=== PATIENT | female | born 2005 | race Caucasian/White ===

== ENCOUNTER 2024-02-16 09:28 | Emergency (ER) | payer OTHER, SELFPAY ==
[2024-02-16 09:34] VITALS: BP 120/73
[2024-02-16] MEDS: LIDOCAINE 4% PATCH 1 PATCH TOPICAL (10:10)
--- NOTE | 2024-02-16 10:20 | ED.GENMED ---
History of Present Illness
General
Chief Complaint: Musculo-Skeletal Complaint
Source: patient
Exam Limitations: none
Time Seen by Provider: 02/16/24 09:44
Nursing documentation reviewed up to this point in time: agreed with
Travel History
Have you had any contact with someone who has COVID-19?: No
Do you have any symptoms of coronavirus? Fever > 100 degrees, chills, cough, shortness of breath, sore throat, loss of taste or smell, muscle aches, or headache?: No
History of Present Illness
History of Present Illness:
Patient is a 18-year-old female is brought to the ER by mom. 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 Yesterday she was
standing at her job throughout the day and this morning woke up with a very stiff back with intense low back pain. She denies any actual radiation. She denies any loss of bowel or bladder or lower extremity weakness. She did PT and was seen by
[facility] years ago however back pain has been getting worse. no recent injury.
Review of Systems
Review of Systems
Allergies reviewed?: Yes
Other source history: family
All Other Systems: ROS reviewed and negative except as documented in HPI and ROS
Constitutional: Reports no symptoms; Denies fever, fatigue or chills
Respiratory: Reports no symptoms
ABD/GI: Reports no symptoms
: Denies dysuria, flank pain, incontinence, urgency or discharge
Musculoskeletal: Reports back pain ( low back pain )
Skin: Reports no symptoms
Neurological: Denies weakness or numbness
Hematologic/Lymphatic: Reports no symptoms
Psychiatric: Reports no symptoms
Phy Exam
General Physical Exam
General Presentation: no apparent distress
General age: appears stated age
General Skin: warm and dry
General Habitus: normal
General Mental: alert
General Hydration: appears well hydrated
Neurological Exam
Neurological Exam: alert, oriented x3, no motor deficits, normal reflexs, no sensory deficits and other (Intact distal sensation bilateral lower extremities normal dorsiflexion plantarflexion)
Musculoskeletal Exam
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
Course
Orders/Labs/Results
Orders:
Orders
02/16/24 09:55
Test Result ONCE
02/16/24 09:56
Lidocaine [Lidocaine 4% Patch] 1 patch TOPICAL NOW STA
Lumbar Spine Complete, 4 View [CR Lumbar Spine Comp Min 4 Vw*] Urgent
Comment:
Reason For Exam: pain
02/16/24 09:59
HCG, Urine Qualitative Screen Urgent
Date Specimen was Collected: 02/16/24
Time Specimen was Collected: 09:55
Vital Signs
Initial and Last Documented VS:
Initial Vital Signs
Temp Pulse Resp BP Pulse Ox
98.2 F 71 20 120/73 100
02/16/24 09:34 02/16/24 09:34 02/16/24 09:34 02/16/24 09:34 02/16/24 09:34
Last Documented Vital Signs
Temp Pulse Resp BP Pulse Ox
98.2 F 71 20 120/73 100
02/16/24 09:34 02/16/24 09:34 02/16/24 09:34 02/16/24 09:34 02/16/24 09:34
MDM/Problems Addressed
Differential Diagnosis Includes:
Not limited to lumbar strain less likely fractures stress
MDM/Problems Addressed:
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 Recently patient has not done gymnastics for the past several years but does complain of worsening back pain worse after standing up yesterday. Worse with range of
motion she was tender in the midline lumbar region therefore x-ray was done and unremarkable. Mom reports ibuprofen is not working will DC on a short course of steroids with lidocaine patch and close outpt f/u with ortho
*Radiology
Radiology exam reviewed: radiology read reviewed
*Pulse Oximetry
Patient hypoxic: no
*Critical Care Note
Total Time (30-74mins, 75-104mins- exclusive of procedures): Not Applicable
ED Attending Note
-
Portions of this chart may have been created with voice recognition software.� Occasional wrong word or��sound alike� substitutions may have occurred due to the inherent limitations of voice recognition software.
Discharge Plan
Departure
Patient Disposition: Home (Routine Discharge)
Date of Disposition: 02/16/24
Time of Disposition: 11:07
Patient with high blood pressure during this ER visit?: No
Condition: Fair
Covid-19: Not Applicable
Discharge Problem:
Low back pain
Instructions: Low Back Pain (DC)
Prescriptions:
New
prednisone 20 mg tablet
40 mg PO DAILY Qty: 8 0RF
lidocaine 5 % adhesive patch,medicated
1 patch topical DAILY Qty: 15 0RF
Rx Instructions:
remove after 12 hrs
Referrals:
Dot Rothman, DO [Active] -
NONE,* [Family Provider] -
Activity Restrictions/Additional Instructions:
As discussed a prescription for steroids was sent to pharmacy for the next 4 days. PT was given the first dose here in the ER.
Patient may intermittently take Tylenol as well. A prescription for lidocaine patch was also sent to pharmacy to use as directed. Follow-up with orthopedics in the next several days for reevaluation of continued pain and return of any worsening of
symptoms
Interventions
Interventions:
*Risk Screen - Suicide Last Done: 02/16/24 09:53
*General Assessment Last Done: 02/16/24 09:53
*Neglect/Abuse Screening Last Done: 02/16/24 09:53
ED- Fall Risk Assessment Last Done: 02/16/24 09:53
*ED COVID-19 Vaccine History Last Done: 02/16/24 09:53
ED-Musculoskeletal Assessment Last Done: 02/16/24 09:53
Discharge Date and Time
Print Language: SWEDISH
[2024-02-16 10:26] LABS: HCG, Urine Qualitative Screen Negative
[2024-02-16] MEDS: DELTASONE 40 MG PO (11:15)
[2024-02-16 11:25] VITALS: BP 125/78
--- NOTE | 2024-02-16 11:25 | EDRN ---
Reviewed discharge instructions with patient and her mother. Verbalized understanding. [facility]
== END 2024-02-16 11:25 | disposition home or self-care (01) ==
LOC: EMR 09:28
PROVIDERS: Nurse Practitioner; EMERGENCY PHYSICIAN Emergency Medicine
DX: M54.50 Low back pain, unspecified (principal)
CPT/HCPCS: 99283; 72110; 81025

== ENCOUNTER 2025-08-20 08:26 | Emergency (ER) | payer OTHER, SELFPAY ==
[2025-08-20 08:28] VITALS: BP 143/73
[2025-08-20 09:27] VITALS: BP 106/61
--- NOTE | 2025-08-20 09:27 | ED.GENMED ---
History of Present Illness
General
Chief Complaint: Heart Rate Problem
Time Seen by Provider: 08/20/25 08:42
History of Present Illness
History of Present Illness:
19-year-old female without significant past medical history presenting to the emergency department for palpitations. Patient reports she woke up this morning with her heart racing. Notes that this has happened to her in the past, back in November.
At that time she did have a Holter monitor, without detection of anything abnormal. Notes a fluttering in her chest. Denies significant pain. No known history of cardiac disease. Patient denies any history of PE, recent surgery, recent travel.
She is on OCPs. Also notes some underlying anxiety. Denies abdominal pain or GI symptoms.
Phy Exam
Physical Exam
Physical Exam:
General: Well-appearing, no clinical signs of dehydration, nontoxic and in no acute distress
HEENT: protecting airway
Neck: appears supple
CV: Normal heart rate, regular rhythm, no evidence of cyanosis
Resp: No accessory muscle use, no increased work of breathing, lungs clear to auscultation bilaterally
Abd: No distention
Extremities: No deformities, no swelling
Neuro: alert, no focal neurologic deficit
: deferred
Rectal: deferred
Psych: Normal affect
Skin: Intact
Course
Orders/Labs/Results
Orders:
Orders
08/20/25 08:36
EKG [Electrocardiogram (*1)] Urgent
Reason for Study: Chest Pain
EKG- Treatment ONCE
08/20/25 09:19
Complete Blood Count/With Diff Urgent
Comprehensive Metabolic Panel Urgent
D-Dimer Urgent
Troponin I Urgent
Vital Signs
Initial and Last Documented VS:
Initial Vital Signs
Temp Pulse Resp BP Pulse Ox
98.1 F 83 16 143/73 100
08/20/25 08:28 08/20/25 08:28 08/20/25 08:28 08/20/25 08:28 08/20/25 08:28
Last Documented Vital Signs
Temp Pulse Resp BP Pulse Ox
98.1 F 74 12 106/61 100
08/20/25 08:28 08/20/25 09:30 08/20/25 09:30 08/20/25 09:27 08/20/25 09:30
MDM/Problems Addressed
MDM/Problems Addressed:
19-year-old female presenting to the emergency department for palpitations. Vital signs on arrival are normal.
On exam patient is resting comfortably, no acute distress or discomfort. Heart rate is presently normal. Does note that she is still having a fluttering. EKG obtained on arrival, nonischemic, no arrhythmia. Possible component of PVCs. Notes she
has had a Holter monitor in the past, unremarkable. Lower suspicion for any serious arrhythmia or acute cardiac issue. Did discuss with patient, plan for laboratory analysis to evaluate for any electrolyte abnormality. In addition patient is on
OCPs and with possible preceding tachycardia PE is a consideration, however less likely given normalized heart. Patient is adamantly refusing laboratory analysis due to anxiety. Did discuss reasons for blood work on multiple occasions, continues
to decline. Given hemodynamic stability and reassuring EKG, feel stable for discharge with outpatient cardiac follow-up. Return precautions communicated to mother and patient at bedside who verbalized understanding
*Pulse Oximetry
SaO2: 100
Oxygen Mode of Delivery: Room air
Patient hypoxic: no
*EKG
Interpreted by ED Provider?: Yes
EKG Intrepretation Date: 08/20/25
EKG Intrepretation Time: 09:44
Interpretation: normal
Heart Rate: 72
Rate: normal
Rhythm: sinus
[place]: normal axis
Interval: normal interval
QRS Pattern: normal QRS
Ischemia: no ischemia
*Critical Care Note
Total Time (30-74mins, 75-104mins- exclusive of procedures): Not Applicable
ED Attending Note
-
Portions of this chart may have been created with voice recognition software.� Occasional wrong word or��sound alike� substitutions may have occurred due to the inherent limitations of voice recognition software.
Discharge Plan
Departure
Patient with high blood pressure during this ER visit?: No
Condition: Good
Discharge Problem:
Palpitations
Prescriptions:
No Action
prednisone 20 mg tablet
40 mg PO DAILY Qty: 8 0RF
lidocaine 5 % adhesive patch,medicated
1 patch topical DAILY Qty: 15 0RF
Rx Instructions:
remove after 12 hrs
Referrals:
Darren Lebron MD [Active, Cardiology]
Activity Restrictions/Additional Instructions:
You were seen in the emergency department for palpitations
You were found to have reassuring vital signs and EKG. We recommend laboratory analysis, however you declined. If symptoms persist or worsen, we recommend that you follow-up closely with cardiology
Please follow-up closely with your primary care physician.
Return to the emergency department for any worsening of your symptoms, or any development of chest pain, difficulty breathing, abdominal pain with persistent vomiting and inability to tolerate food or liquid by mouth (concern for dehydration),
weakness, headache or confusion, fever greater than 100.4, or any additional symptoms that are concerning to you.
Thank you for choosing [facility].
Interventions
Interventions:
*Risk Screen - Suicide Last Done: 08/20/25 08:28
*General Assessment Last Done: 08/20/25 08:50
*Neglect/Abuse Screening Last Done: 08/20/25 08:28
*ED- Fall Risk Assessment Last Done: 08/20/25 08:50
*ED COVID-19 Vaccine History Last Done: 08/20/25 08:50
*ED Influenza Vaccine History Last Done: 08/20/25 08:50
ED- Cardiac Assessment Last Done: 08/20/25 08:50
ED- Pulmonary Assessment Last Done: 08/20/25 08:50
Discharge Date and Time
Print Language: AZERI
== END 2025-08-20 10:22 | disposition home or self-care (01) ==
LOC: EMR 08:26
PROVIDERS: EMERGENCY PHYSICIAN Student in an Organized Health Care Education/Training Program; FAMILY PHYSICIAN Physician Assistant
DX: R00.2 Palpitations (principal); F41.9 Anxiety disorder, unspecified; Z79.3 Long term (current) use of hormonal contraceptives
CPT/HCPCS: 99283; 93005